=== PATIENT | male | born 2000 | race Native Hawaiian/Other Pacific Islander ===

== ENCOUNTER 2019-03-23 14:16 | Emergency (ER) | payer OTHER ==
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
[2019-03-23] MEDS ORDERED: IBUPROFEN PO ONE (16:56)
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
[2019-03-23 18:47] VITALS: BP 118/69
== END 2019-03-23 19:05 | disposition home or self-care (01) ==
LOC: ED 14:16
DX: S39.012A Strain of muscle, fascia and tendon of lower back, initial encounter (principal); V89.2XXA Person injured in unspecified motor-vehicle accident, traffic, initial encounter; Y93.89 Activity, other specified; Y92.89 Other specified places as the place of occurrence of the external cause; Y99.8 Other external cause status
CPT/HCPCS: 72100; 99283